=== PATIENT | female | born 1980 | race Caucasian/White ===

== ENCOUNTER 2023-11-07 18:22 | Emergency (ER) | payer OTHER, SELFPAY ==
[2023-11-07 18:30] VITALS: BP 120/77; PULSE 78; RESP 14; TEMP 36.4; O2SAT 100; BMI 33.8
--- NOTE | 2023-11-07 19:03 | ED_ITS ---
HPI - General Adult General Chief complaint: Insect Bite Stated complaint: Had deer tick Time Seen by Provider: 11/07/23 18:26 History of Present Illness HPI narrative: This 43-year-old female comes in because of a tick bite that she identified on her abdomen prior to arrival. She states that the tick has been at bed for at least 24 hours. She brings the tick with her and does appear to be a deer tick. She does not report any other symptoms. Related Data Home Medications ?Medication ?Instructions ?Recorded ?Confirmed No Known Home Medications 11/07/23 11/07/23 Review of Systems Status of ROS: Reports: 10 or more systems reviewed and unremarkable except as noted in History and below Narrative: Constitutional: No fevers, no weight gain or loss. Eyes: No discharge. No vision changes. HENT: No congestion, no sore throat, no ear pain. Cardiovascular: No chest pain, no palpitations. Respiratory: No shortness of breath, no wheezes, no cough. Gastrointestinal: No abdominal pain, no vomiting, no diarrhea. Genitourinary: No dysuria, no hematuria. Musculoskeletal: Normal range of motion. Skin: No rashes, no pruritis. Neurological: No dizziness, weakness, sensory change, speech change. Endo/Heme/Allergies: No bruising or bleeding. No polydipsia. Pysch: no suicidality, no anxiety, no insomnia. All other systems reviewed and are negative. PFSH PFSH Social History Non-prescribed substance use: denies use Exam Narrative: Exam Narrative: Constitutional: Well-developed, well-nourished, no acute distress. HEENT: Normocephalic, atraumatic. Neck: Normal range of motion. Nontender. Supple. Heart: Intact distal pulses. Lungs: No chest discomfort. No wheezes, rhonchi, or rales. Abdomen: Nontender. Back: Normal range of motion. Extremities: Normal range of motion. No injury. Skin: Intact. No rash. Warm. No erythema or pallor. Tick bite with small amount of erythema around on the right abdomen. Neurologic: No altered sensation. No weakness. Alert and oriented. Psychiatric: No suicidality. No anxiety or depression. No insomnia. Nursing notes and vitals signs are reviewed. Const: Vital Signs, click to edit/add: Vital Signs - 24 hr 11/07/23 18:30 Temperature 97.5 F L Pulse Rate [Pulse Oximeter] 78 Respiratory Rate 14 Blood Pressure [Ri ght Upper Arm] 120/77 Pulse Oximetry 100 Oxygen Delivery Me thod Room Air Course Vital Signs Vital signs: Initial Vital Signs Temperature 97.5 F L 11/07/23 18:30 Temperature Source Temporal Artery Scan 11/07/23 18:30 Pulse Rate 78 11/07/23 18:30 Pulse Rhythm Regular 11/07/23 18:30 Respiratory Rate 14 11/07/23 18:30 Blood Pressure 120/77 11/07/23 18:30 Blood Pressure Mean 91 11/07/23 18:30 Blood Pressure Position Sitting 11/07/23 18:30 Pulse Oximetry 100 11/07/23 18:30 Oxygen Delivery Method Room Air 11/07/23 18:30 Vital Signs Temperature 97.5 F L 11/07/23 18:30 Pulse Rate 78 11/07/23 18:30 Respiratory Rate 14 11/07/23 18:30 Blood Pressure 120/77 11/07/23 18:30 Pulse Oximetry 100 11/07/23 18:30 Oxygen Delivery Method Room Air 11/07/23 18:30 Temperature 97.5 F L 11/07/23 18:30 Pulse Rate 78 11/07/23 18:30 Respiratory Rate 14 11/07/23 18:30 Blood Pressure 120/77 11/07/23 18:30 Pulse Oximetry 100 11/07/23 18:30 Oxygen Delivery Method Room Air 11/07/23 18:30 Medical Decision Making MDM Narrative Medical decision making narrative: This patient comes in with a tick bite that she reports must of been present for at least 24 hours. She arrives with normal vital signs and is otherwise asymptomatic. She does have a small amount of erythema around the area where the tick was imbedded. The tick is completely removed there is no sign of residual parts yet in the abdominal site. According to up-to-date guidelines the patient did receive a 1 time dose of doxycycline 100 mg. This should sufficiently arrest any tick-borne disease in its early stages at may be developing. I advised her to return if worsening symptoms occur. Discharge Plan Discharge Clinical Impression: Tick bite of abdomen Patient Disposition: Home, Self-Care Condition: Stable Additional Instructions: Continue current plans. Follow up with MD or return if worsening symptoms occur. Prescriptions: No Action No Known Home Medications Stand Alone Forms: [employer] Info Instructions
[2023-11-07] MEDS: DOXYCYCLINE HYCLATE 100 MG PO (19:14)
--- OUTSIDE RECORDS SUMMARY | 2023-11-07 19:31 | XMS_ITS | Clinical Summary ---
Author Organization [facility] Address [place], [place] [address] Care Team Providers Care Petrography Teacher Name Role Phone Mervat Xiao OLIVIER Primary Care Provider Allergies Active Allergy Reactions Criticality Noted Date Comments Cyclobenzaprine Rash 10/27/2009 Ibuprofen Hives 10/27/2009 Mafenide Hives 10/27/2009 Methylphenidate Anaphylaxis High 01/04/2014 Naproxen Sodium Hives 09/06/2016 Penicillins Hives,Shortness Of Breath 10/27/2009 Sulfa (Sulfonamide Antibiotics) 10/28/2009 Oseltamivir Hives 09/06/2016 Medications Medication Sig Dispensed Refills Start Date End Date Status NebulizersIndication s:Wheezy bronchitis 99 1 Kit 0 03/03/2013 Active albuterol (PROVENTIL) 0.083 % neb solution Inhale 3 mL via a nebulizer every 6 hours if needed for Shortness Of Breath. 1 box 0 03/03/2013 Active albuterol HFA (VENTOLIN HFA) 90 mcg/actuation inhalerIndications:W heezy bronchitis Inhale 2 Puffs by mouth every 4 hours if needed for Shortness Of Breath or Wheezing. 1 Inhaler 2 11/01/2013 Active acetaminophen (TYLENOL EXTRA STRGTH) 500 mg tablet Take 1,000 mg by mouth every 6 hours if needed. Active nystatin powder (MYCOSTATIN) powderIndications:Ca ndidal skin infection Apply 1 Strip topically to affected area(s) two times daily. 60 g 08/04/2023 Active Active Problems Problem Noted Date Diagnosed Date Upper respiratory infection 03/07/2013 Leukocytosis 03/07/2013 Tobacco dependence 03/01/2013 Impaired fasting glucose 07/30/2011 Migraine, unspecified, witho ut mention of intractable migraine without mention of status migrainosus 07/30/2011 Hyperlipidemia 01/15/2011 Hypertension 01/15/2011 Encounters Date Type Department Care Team Description 11/07/2023 Nurse Triage [facility] [address] [place] [address] Mervat Xiao NP Tick Bite 11/07/2023 Telephone [facility] [address] [place] [address] Mervat Xiao NP Error-please disregard 09/09/2023 7:50 AM CDT Orders Only [facility] [address] [place] [address] [facility] 09/09/2023 Travel 09/03/2023 2:00 PM CDT Office Visit [facility] [address] [facility] [place] [address] Costa Mayes MD Consult (Fatty liver) 09/03/2023 Travel 08/30/2023 Travel 08/11/2023 9:00 AM FINANCIAL RECORDING CLERK Orders Only [facility] [address] [place] [address] [facility] 08/11/2023 7:22 AM FINANCIAL RECORDING CLERK - 08/11/2023 11:59 PM FINANCIAL RECORDING CLERK Hospital Encounter [facility] [address] [place] [address] Mervat Xiao NP Fatty liver; Umbilical abnormality 08/11/2023 Travel from Last 3 Months Immunizations Name Administration Dates Next Due DTP 01/24/1985, 2,1979,1979,1979 Hep B (Hepatitis B (Adult) Recombinant Adjuvanted) 08/04/1997 Hepatitis A (Adult) 10/18/2007 Hepatitis B (Adult) 01/13/2023,09/03/2022 Hepatitis B, Unspecified 08/04/1997 Influenza Virus, Unspecified 04/02/2019,06/01/20 18,03/26/2010 Influenza, IIV3 (Age 6-35 mos) 03/08/2009 Influenza, IIV3 (Age >=3 years) 03/15/2013,08/10 Influenza, IIV4 04/02/2019,06/01/2018 Influenza, IIV4 (=>6mos) MDV 04/30/2017 MMR 08/04/1997,12/19/1991,07/11/1980 Oral Polio Vaccine 1979 Pneumococcal Poly,23-Valent (Pneumovax) 03/15/2013 Pneumococcal conj 13-Valent (Prevnar 13) 09/03/2022 Polio (Oral Polio Vaccine,Unspecified) 07/06/1989,01/24/1985,08/30/1981,1979,1979 Td (Age >=7 Years) 09/03/2022,12/19/1991 Tdap 09/03/2022,12/05/2011,08/13/2007 Family History Medical History Relation Name Comments Cancer-breast Maternal Grandmother Relation Name Status Comments Maternal Grandmother Social History Tobacco Use Types Packs/Day Years Used Date Smoking Tobacco: Every Day Cigarettes Last attempted to quit: 08/2017 Smokeless Tobacco: Never Tobacco Cessation:Ready to Q uit: Not Asked; Counseling Given: Not Answered Comments:Chantix prescription at home,educational information offered Alcohol Use Standard Drinks/Week Comments No 0 (1 standard drink = 0.6 oz pur e alcohol) Social Connections Answer Date Recorded Frequency of Communication with Friends and Fami ly Not on file 07/13/2023 Sex and Gender Information Value Date Recorded Sex Assigned at Not on file Gender Identity Not on file Sexual Orientation Not on file Obstetrics History Last Filed Vital Signs Vital Sign Reading Time Taken Comments Blood Pressure 110/68 09/03/2023 1:59 PM CDT Pulse 85 09/03/2023 1:59 PM CDT Temperature 36.4 ??C (97.6 ??F) 09/06/2016 1 2:36 AM CDT Respiratory Rate 14 08/04/2023 3:45 PM FINANCIAL RECORDING CLERK Oxygen Saturation 96% 09/03/2023 1:59 PM CDT Inhaled Oxygen Concentration - - Weight 83.8 kg (184 lb 11.2 oz) 09/03/2023 1:59 PM CDT Height 156.2 cm (5' 1.5) 08/04/2023 3:45 PM FINANCIAL RECORDING CLERK Body Mass Index 34.33 08/04/2023 3:45 PM FINANCIAL RECORDING CLERK Plan of Treatment Health Maintenance Due Date Last Done Comments Depression screening for age 12+ 1991 HIV for age 15-65 1994 Hepatitis C screening for ag e 18-79 1997 COVID-19 vaccine series (2022- season) 2023 Influenza for age 9-49 02/14/2024 9, 04/02/2019, 06/01/2018, Additional history exists BMI (ht and wt on same day) for age 18+ 08/04/2024 08/04/2023 Tetanus booster 09/03/2032 09/03/2022, 08/14, 12/05/2011, Additional history exists Pneumococcal series for age 6-64 (3 of 3 - PPSV23 or PCV20) 2044 09/03/2022, 03/15/2013 Tdap Completed 09/03/2022, 11/14, 08/13/2007 Procedures Procedure Name Priority Date/Time Associated Diagnosis Comments [facility] MISCELLANEOUS SENDOUT Routine 09/09/2023 7:50 AM CDT Fatty liver MISCELLANEOUS SEND OUT Routine 7:50 AM CDT Fatty liver US ABDOMEN COMPLETE Routine 08/11/2023 8 :30 AM FINANCIAL RECORDING CLERK Fatty liver Umbilical abnormality CBC WITH AUTO DIFFERENTIAL Routine 08/11/2023 8:15 AM FINANCIAL RECORDING CLERK Screening, anemia, deficiency, iron TSH Routine 08/11/2023 8:15 AM FINANCIAL RECORDING CLERK Screening for thyroid disorder CBC WITH AUTO DIFFERENTIAL Routine 08/11/2023 8:15 AM FINANCIAL RECORDING CLERK Screening, anemia, deficiency, iron HEMOGLOBIN A1C SCREENING Routine 08/11/2023 8:15 AM FINANCIAL RECORDING CLERK Diabetes mellitus screening BASIC METABOLIC PANEL Routine 08/11/2023 8:15 AM FINANCIAL RECORDING CLERK Diabetes mellitus screening LIPID PANEL W REFLEX MEASURED LDL Routine 08/11/2023 8:15 AM FINANCIAL RECORDING CLERK Lipid screening from Last 3 Months Results * [facility] SENDOUT (09/09/2023 7:50 AM CDT) [facility] SEND OUT COMMENT 09/11/2023 11:07 PM CDT [facility] ([facility]) Comment: Test Ordered: [id number] PURCELL FibroSure(R) Plus Fibrosis Score ? 0.01 ?01 ? Reference Range: 0.00-0.21 ? Fibrosis Stage ? Comment ? 01 ? F0 - No fibrosis Steatosis Score ?0.50 ?[H ] ?01 ? Reference Range: 0.00-0.40 ? Steatosis Grade ?Comment ? 01 ?S1 - Mild Steatosis ? (But Clinically Significant) (5-33%) PURCELL Score ? 0.13 ?01 ? Reference Range: 0.00-0.25 ? PURCELL Grade ? Comment ? 01 ? N0 - No PURCELL Methodology: ? Comment ? 01 ?? The analytes tested are performed by FibroSure-Specific methods. Not intended for use with other diagnostic considerations. Alpha 2-Macroglobulins, Qn ? 96 ?[L ] mg/dL ?01 ? Reference Range: 110-276 ? Haptoglobin ?282 ?mg/dL ?01 ? Reference Range: 42-296 ? Apolipoprotein A-1 ? 137 ?mg/dL ?01 ? Reference Range: 116-209 ? Bilirubin, Total ? 0.2 ?mg/dL ?01 ? Reference Range: 0.0-1.2 ? GGT ?14 ? IU/L ? 01 ? Reference Range: 0-60 ? ALT (SGPT) P5P ? 24 ? IU/L ? 01 ? Reference Range: 0-40 ? AST (SGOT) P5P ? 22 ? IU/L ? 01 ? Reference Range: 0-40 ? Cholesterol, Total ? 248 ? [H ] mg/dL ?01 ? Reference Range: 100-199 ? Glucose, Serum ? 99 ? mg/dL ?01 ? Reference Range: 70-99 ? Triglycerides ?83 ? mg/dL ?01 ? Reference Range: 0-149 ? Interpretations: ? Comment ? 01 ?? Quantitative results of 10 biochemicals in combination with age and gender, are analyzed using a computational algorithm to provide a quantitative surrogate marker (0.0-1.0) of liver fibrosis (Metavir F0-F4), hepatic steatosis (0.0-1.0, S0-S3), and Non-Alcoholic Steato-Hepatitis (PURCELL) (0.0-1.0, N0-N3). The absence of steatosis (S<0.40) precludes the diagnosis of PURCELL. Fibrosis marker: In a study of 171 Non-Alcoholic Fatty Liver Disease (NAFLD) patients where 23% had significant NAFLD fibrosis (Metavir F2-F4) and 11% had cirrhosis by liver biopsy, a fibrosis result of >0.3 yielded a sensitivity of 83% and a specificity of 78% for the detection of significant fibrosis.[1] Steatosis marker: In a population of 2997 patients, where 61% had significant steatosis (>=5%) on a liver biopsy, a steatosis score >0.4 had a sensitivity of 79% and a specificity of 50% for identification of significant steatosis.[2] PURCELL marker: In a population of 1081 NAFLD patients, where 51% had at least some PURCELL by liver biopsy, a prediction of PURCELL had a sensitivity of 72% for identifying PURCELL and a specificity of 71%.[3] Fibrosis Scoring: ?Comment ? 01 ? <=0.21 = Stage F0 - No fibrosis 0.21 - 0.27 = Stage F0 - F1 0.27 - 0.31 = Stage F1 - Portal fibrosis 0.31 - 0.48 = Stage F1 - F2 0.48 - 0.58 = Stage F2 - Bridging fibrosis with few septa 0.58 - 0.72 = Stage F3 - Bridging fibrosis with many septa 0.72 - 0.74 = Stage F3 - F4 ?>0.74 = Stage F4 - Cirrhosis Steatosis Scoring ?Comment ? 01 ? <=0.40 = S0 ??- No Steatosis (<5%) 0.40 - 0.55 = S1 ??- Mild Steatosis ?(but Clinically Significant) (5-33%) ?>0.55 = S2S3- Moderate to Severe Steatosis ?(Clinically Significant) (34-100%) PURCELL Scoring ? Comment ? 01 ? <=0.25 = N0 - No PURCELL 0.25 - 0.50 = N1 - Mild PURCELL 0.50 - 0.75 = N2 - Moderate PURCELL ?>0.75 = N3 - Severe PURCELL Limitations: ? Comment ? 01 ?? PURCELL FibroSure(R) Plus is recommended for patients with suspected non-alcoholic fatty liver disease. It is not recommended for patients with other liver diseases. It is also not recommended in patients with Gilbert Disease, acute hemolysis, acute viral hepatitis, drug induced hepatitis, genetic liver disease, autoimmune hepatitis and/or extra-hepatic cholestasis. Any of these clinical situations may lead to inaccurate quantitative predictions of fibrosis. Comment: ? Comment ? 01 ?? This test was developed and its performance characteristics determined by [employer]. It has not been cleared or approved by the Food and Drug Administration. For questions regarding this report please contact customer service at . References: 1. ??Guido Ramsey al. Diagnostic Value of Biochemical Markers (FibroTest) for the prediction of Liver Fibrosis in patients with Non-Alcoholic Fatty Liver Disease. BMC Gastroenterology 2006; 6:6. 2. ??Pk Garvin. et al. The Diagnostic Performance of a Simplified Blood Test (SteatoTest-2) for the Prediction of Liver Steatosis. Eur J Gastroenterol Hepatol. 2019; 31:393-402. 3. ??Pk Garvin. et al. Diagnostic performance of a new noninvasive test for nonalcoholic steatohepatitis using a simplified histological reference. Eur J Gastroenterol Hepatol. 2018 May; 30:569-577. Blood BLOOD SPECIMEN / Unknown Venipuncture / Unknown 09/09/2023 7:50 AM CDT 09/09/2023 7:50 AM CDT Narrative [facility] ([facility]) - 09/11/2023 11:07 PM CDT Performed At: [address] [id number] Daniel Castorena MD Ph:[phone] Performed At: [address] [id number] Monica Peacock MD Ph:[phone] Costa Mayes MD LABORATORY [facility] ([facility]) [address] [place], [place] [id number] * MISCELLANEOUS SEND OUT (09/09/2023 7:50 AM CDT) TEST NAME PURCELL FibroSure Plus 09/09/2023 1:34 PM CDT [facility] SOURCE serum 09/09/2023 1:34 PM CDT [facility] PERFORMING LAB [facility] 09/09/2023 1:34 PM CDT [facility] REFERRAL LAB TEST # [id number] 09/09/2023 1:34 PM CDT [facility] IS THIS A [facility] TEST? Yes, See [facility] Miscellaneous Sendout result 09/09/2023 1:34 PM CDT [facility] LABORAT[facility] Blood BLOOD SPECIMEN / Unknown Venipuncture / Unknown 09/09/2023 7:50 AM CDT 09/09/2023 7:50 AM CDT Costa Mayes MD SEND OUTS [facility] [address] [place] [address], [place] * US ABDOMEN COMPLETE (08/11/2023 8:30 AM FINANCIAL RECORDING CLERK) Anatomical Region Laterality Modality Abdomen, LIVER, KIDNEYS, PANCREAS, GALLBLADDER, SPLEEN Ultrasound Impressions 08/11/2023 9:50 AM FINANCIAL RECORDING CLERK 1. Echogenic liver suggesting fatty infiltration. 2. No splenomegaly or hydronephrosis. 3. Poor to nonvisualization of most of the pancreas due to bowel gas/body habitus. 4. No fluid collection at the level of the umbilicus. Dictated by Cory Riojas MD @ 08/11/2023 8:49:55 AM Signed by: Cory Riojas MD @08/11/2023 8:49:55 AM (Electronic Signature) Narrative 08/11/2023 9:50 AM FINANCIAL RECORDING CLERK INDICATION: Fatty liver. Umbilical abnormality (reported umbilical infection not otherwise specified). Prior cholecystectomy. TECHNIQUE: Complete abdomen ultrasound. FINDINGS: Surgically absent gallbladder. Mildly echogenic liver. No intrahepatic mass. No biliary ductal dilatation. The common bile duct is 7 mm. The spleen is within normal limits at 9.8 cm. The pancreas is poorly and incompletely visualized due to bowel gas and body habitus. It is grossly unremarkable where seen. Further imaging of the pancreas should be based on clinical grounds. A CT may be helpful. No upper abdominal ascites. No hydronephrosis of either kidney. The right kidney measures 9.7 x 4.2 x 5.4 cm and the left kidney measures 9.7 x 5.6 x 6.8 cm. The visualized abdominal aorta is of normal caliber. The proximal aorta is not well seen. The mid aorta measures 1.8 cm in AP dimension, and distal aorta 1.6 cm. The visualized IVC is grossly unremarkable. Brief directed evaluation of the periumbilical soft tissues does not demonstrate a fluid collection. Mervat Xiao PIPELINE WELDER US * (ABNORMAL) CBC WITH AUTO DIFFERENTIAL (08/11/2023 8:15 AM [facility] [email or web address]]) WHITE BLOOD COUNT 6.7 4.5 - 11.0 thou/cu mm 08/11/2023 8:54 AM [facility] RED BLOOD COUNT 5.13 4.00 - 5.20 mil/cu mm 08/11/2023 8:54 AM [facility] HEMOGLOBIN 16.2(H) 12.0 - 16.0 g/dL 08/11/2023 8:54 AM [facility] HEMATOCRIT 50.2 33.0 - 51.0 % 08/11/2023 8:54 AM [facility] MCV 98 80 - 100 fL 08/11/2023 8:54 AM [facility] MCH 31.6 26.0 - 34.0 pg 08/11/2023 8:54 AM [facility] MCHC 32.3 32.0 - 36.0 g/dL 08/11/2023 8:54 AM [facility] RDW 14.1 11.5 - 15.5 % 08/11/2023 8:54 AM [facility] PLATELET COUNT 170 140 - 440 thou/cu mm 08/11/2023 8:54 AM [facility] MPV 10.5 6.5 - 11.0 fL 08/11/2023 8:54 AM [facility] % NEUT 53.8 % 08/11/2023 8:54 AM [facility] % LYMPH 30.9 % 08/11/2023 8:54 AM [facility] % MONO 11.3 % 08/11/2023 8:54 AM [facility] % EOS 3.7 % 08/11/2023 8:54 AM [facility] % BASO 0.3 % 08/11/2023 8:54 AM [facility] ABSOLUTE NEUTROPHILS 3.6 1.7 - 7.0 thou/cu mm 08/11/2023 8:54 AM [facility] ABSOLUTE LYMPHOCYTES 2.1 0.9 - 2.9 thou/cu mm 08/11/2023 8:54 AM FINANCIAL RECORDING CLERK [facility] ABSOLUTE MONOCYTES 0.8 <0.9 thou/cu mm 08/11/2023 8:54 AM FINANCIAL RECORDING CLERK [facility] ABSOLUTE EOSINOPHILS 0.3 <0.5 thou/cu mm 08/11/2023 8:54 AM FINANCIAL RECORDING CLERK [facility] ABSOLUTE BASOPHILS 0.0 <0.3 thou/cu mm 08/11/2023 8:54 AM FINANCIAL RECORDING CLERK [facility] Blood BLOOD SPECIMEN / Unknown Venipuncture / Unknown 08/11/2023 8:15 AM FINANCIAL RECORDING CLERK 08/11/2023 8:15 AM FINANCIAL RECORDING CLERK Mervat Xiao NP HEMATOLOGY Performing Organization Address [facility]/ZIP Co de Phone Number [facility] [address] [place] [address] * HEMOGLOBIN A1C SCREENING (08/11/2023 8:15 AM FINANCIAL RECORDING CLERK) HEMOGLOBIN A1C SCREENING 5.5 <=6.4 % 08/11/2023 8:40 AM FINANCIAL RECORDING CLERK [facility] Blood BLOOD SPECIMEN / Unknown Venipuncture / Unknown 08/11/2023 8:15 AM FINANCIAL RECORDING CLERK 08/11/2023 8:15 AM FINANCIAL RECORDING CLERK Narrative [facility] - 08/11/2023 8:40 AM FINANCIAL RECORDING CLERK ? (<5.7%) ?Normal ? (5.7% to 6.4%) ? Indicates prediabetes ? (>=6.5%) ? Confirms diabetes Falsely low levels may be seen with: Recent Transfusion, Recent Significant Blood Loss, Hemolytic Diseases, or Falsely elevated levels may be seen with: Untreated Anemias, Splenectomy Mervat Xiao NP CHEMISTRY Performing Organization Address [facility]/ZIP Co de Phone Number [facility] [address] [place] [address] * (ABNORMAL) LIPID PANEL W REFLEX MEASURED LDL (08/11/2023 8:15 AM FINANCIAL RECORDING CLERK) CHOLESTEROL,TOTAL 248(H) 100 - 199 mg/dL 08/11/2023 9:05 AM [facility] Comment: Cholesterol, Total Reference Ranges Desirable <200 mg/dL Borderline 200-239 mg/dL High >=240 mg/dL TRIGLYCERIDES 80 <150 mg/dL 08/11/2023 9:05 AM [facility] HDL CHOLESTEROL 56 >40 mg/dL 9:05 AM [facility] NON-HDL CHOLESTEROL 192(H) <145 mg/dl 08/11/2023 9:05 AM [facility] CHOL/HDL RATIO 4.43 <4.50 08/11/2023 9:05 AM [facility] LDL CHOLESTEROL 176(H) <=130 mg/dL 08/11/2023 9:05 AM [facility] VLDL CHOLESTEROL 16 <=30 mg/dL 08/11/2023 9:05 AM [facility] PROVIDER ORDERED STATUS RANDOM 08/11/2023 9:05 AM [facility] Blood BLOOD SPECIMEN / Unknown Venipuncture / Unknown 08/11/2023 8:15 AM FINANCIAL RECORDING CLERK 08/11/2023 8:15 AM FINANCIAL RECORDING CLERK Mervat Xiao NP CHEMISTRY Performing Organization Address City/State/[facility] Co de Phone Number [facility] [address] [place] [phone] * TSH (08/11/2023 8:15 AM FINANCIAL RECORDING CLERK) TSH 1.90 0.27 - 4.20 uIU/mL 08/11/2023 9:05 AM [facility] Blood BLOOD SPECIMEN / Unknown Venipuncture / Unknown 08/11/2023 8:15 AM FINANCIAL RECORDING CLERK 08/11/2023 8:15 AM FINANCIAL RECORDING CLERK Narrative [facility] - 08/11/2023 9:05 AM FINANCIAL RECORDING CLERK In Adults, TSH values between 5.00 and 10.00 uIU/ml do not necessarily indicate the presence of Hypothyroidism. Correlation with clinical findings such as presence of goiter and/or Thyroperoxidase (TPO) Antibody may be helpful. For more information please refer to MARCUS 2004; 291: 228-238. Mervat Xiao NP CHEMISTRY [facility] [address] [place] [address] * (ABNORMAL) BASIC METABOLIC PANEL (08/11/2023 8:15 AM [facility] [[email or web address] SODIUM 143 136 - 145 mmol/L 08/11/2023 9:05 AM [facility] POTASSIUM 4.5 3.5 - 5.1 mmol/L 08/11/2023 9:05 AM [facility] CHLORIDE 105 98 - 107 mmol/L 08/11/2023 9:05 AM [facility] CO2,TOTAL 30(H) 22 - 29 mmol/L 08/11/2023 9:05 AM [facility] ANION GAP 8 5 - 18 08/11/2023 9:05 AM [facility] GLUCOSE 97 70 - 99 mg/dL 08/11/2023 9:05 AM [facility] CALCIUM 9.4 8.6 - 10.0 mg/dL 08/11/2023 9:05 AM [facility] BUN 14 6 - 20 mg/dL 08/11/2023 9:05 AM [facility] CREATININE 0.68 0.50 - 0.90 mg/dL 08/11/2023 9:05 AM [facility] BUN/CREAT RATIO 21(H) 10 - 20 9:05 AM [facility] eGFR >90 >90 mL/min/1.7 3m2 08/11/2023 9:05 AM [facility] Comment:As of 2021, eG FR is calculated by the CKD-EPI creatinine equation without race adjustment. ??eGFR can be influenced by muscle mass, exercise, and diet. ??The reported eGFR is an estimation only and is only applicable if the renal function is stable. Blood BLOOD SPECIMEN / Unknown Venipuncture / Unknown 08/11/2023 8:15 AM FINANCIAL RECORDING CLERK 08/11/2023 8:15 AM FINANCIAL RECORDING CLERK Mervat Xiao NP CHEMISTRY [facility] [address] [place] [address] from Last 3 Months Advance Directives * Full Code (Latest Code Status on File) Date Activated Date Inactivated Comments 03/07/2013 8:09 AM 03/08/2013 4:04 PM Care Teams Petrography Teacher Relationship Specialty Start Date End Date Mervat Xiao NP [address] [facility] [place] [address] PCP - General Nurse Practitioner - Family 08/10/23
== END 2023-11-07 19:30 | disposition home or self-care (01) ==
LOC: ED 19:29
PROVIDERS: Emergency Provider Emergency Medicine Emergency Medical Services; PCP Nurse Practitioner Family
DX: S30.861A Insect bite (nonvenomous) of abdominal wall, initial encounter (principal)
CPT/HCPCS: 99283; 99284; A9270